=== PATIENT | female | born 1975 | race Caucasian/White ===

== ENCOUNTER → 2016-07-07 | Outpatient (CLI) | payer BC ==
[~2016-07-07] MED LIST: BCPILLS PO
--- NOTE | 2016-07-08 12:49 | MAMMOGRAPHY REPORT ---
BILATERAL FIRST EVER DIGITAL SCREENING MAMMOGRAM TOMOSYNTHESIS WITH CAD: 07/07/2016 CLINICAL HISTORY: Routine screening examination. TECHNIQUE: Breast tomosynthesis in addition to standard 2D mammography was performed. Current study was also evaluated with a Computer Aided Detection (CAD) system. COMPARISON: No prior exams were available for comparison. BREAST COMPOSITION: The tissue of both breasts is heterogeneously dense, which may obscure small ma sses. FINDINGS: There is a small grouping of microcalcifications in the approximate 9:00 middle one third of the left breast, for which additional spot magnification views are recommended. There is an asy mmetry in the superior middle one third of the right breast, near the fatglandular interface with p ossible associated architectural distortion. Although this does not definitely persist on the corre sponding tomosynthesis images, additional spot compression tomosynthesis views and possibly ultrasou nd are recommended given that no prior mammograms are available to assess stability. No other suspicious mass, architectural distortion or cluster of microcalcifications is seen bilater ally. IMPRESSION: ACR BI-RADS CATEGORY 0: INCOMPLETE EVALUATION: NEED ADDITIONAL IMAGING EVALUATION The small grouping of microcalcifications in the 9:00 left breast, and right superior asymmetry need additional imaging evaluation. The patient will be called to schedule an appointment. Approximately 10% of breast cancers are not detected with mammography. A negative mammographic repor t should not delay biopsy if a clinically suggestive mass is present. Laury Fontanez M.D. ay/:07/07/2016 17:15:10 Back End Architect: Nydia ADAMS)(Neha), [facility] letter sent: Addl Imaging 0 BI-RADS Code: ACR BI-RADS Category 0: Incomplete Evaluation: Need Additional Imaging Evaluation
== END | disposition home or self-care (01) ==
LOC: C.MAMM 16:38
PROVIDERS: ATTEND Obstetrics & Gynecology
DX: Z12.31 Encounter for screening mammogram for malignant neoplasm of breast (principal); R92.0 Mammographic microcalcification found on diagnostic imaging of breast

== ENCOUNTER → 2016-07-15 | Outpatient (CLI) | payer BC ==
--- NOTE | 2016-07-15 15:41 | MAMMOGRAPHY REPORT ---
BILATERAL DIGITAL DIAGNOSTIC MAMMOGRAM TOMOSYNTHESIS WITH CAD: 07/15/2016 CLINICAL HISTORY: Callback from screening mammogram for right breast asymmetry and left breast calci fications. TECHNIQUE: Breast tomosynthesis in addition to standard 2D mammography was performed. Current study was also evaluated with a Computer Aided Detection (CAD) system. Spot magnification left CC and ML views and spot compression right MLO 2-D and tomosynthesis images were obtained. COMPARISON: Comparison is made to exam dated: 07/07/2016 mammogram - [facility]. BREAST COMPOSITION: The tissue of both breasts is heterogeneously dense, which may obscure small ma sses. FINDINGS: The previously described asymmetry seen within the right superior breast has the appearan ce of normal fibroglandular tissue on the tomosynthesis spot compression views. No suspicious mass or architectural distortion is seen in this region on the additional views. Spot magnification views of the left breast demonstrate a 6 mm group of round calcifications seen wi thin the left medial breast at approximately 9:00. A smaller 3 mm cluster of punctate calcification s is seen on the spot magnification ML view in the inferior posterior breast. A few other scattered benign-appearing calcifications are noted. The calcifications are probably benign. Recommend foll ow-up diagnostic mammograms in 6 months given no priors to document stability. IMPRESSION: ACR-BI-RADS CATEGORY 3: PROBABLY BENIGN 1. Two small clusters of benign-appearing calcifications in the left 9:00 and left inferior posterio r breast. The calcifications are probably benign; recommend follow-up diagnostic mammograms of the left breast in 6 months given no priors to document stability. 2. The right breast asymmetry is benign and compatible with normal fibroglandular tissue. The patient has been verbally notified of the results. Approximately 10% of breast cancers are not detected with mammography. A negative mammographic repor t should not delay biopsy if a clinically suggestive mass is present. Daniela Cottrell M.D. /:07/15/2016 14:36:41 Fitness Floor Attendant: Jessica Her, [facility] letter sent: Follow Up Recommended 3 BI-RADS Code: ACR-BI-RADS Category 3: Probably Benign
== END | disposition home or self-care (01) ==
LOC: C.MAMM 14:09
PROVIDERS: ATTEND Obstetrics & Gynecology
DX: R92.1 Mammographic calcification found on diagnostic imaging of breast (principal)

== ENCOUNTER → 2016-11-23 | Outpatient (CLI) | payer BC | END | disposition home or self-care (01) | LOC: C.PAPS 11:59 | PROVIDERS: ATTEND Physician Assistant | DX: Z01.419 Encounter for gynecological examination (general) (routine) without abnormal findings (principal) ==

== ENCOUNTER → 2017-01-19 | Outpatient (CLI) | payer BC ==
--- NOTE | 2017-01-19 13:17 | MAMMOGRAPHY REPORT ---
UNILATERAL LEFT DIGITAL DIAGNOSTIC MAMMOGRAM TOMOSYNTHESIS WITH CAD: 01/19/2017 CLINICAL HISTORY: Short interval follow-up of left breast calcifications. TECHNIQUE: Breast tomosynthesis in addition to standard 2D mammography was performed. Current study was also evaluated with a Computer Aided Detection (CAD) system. Left CC and MLO 2-D and tomosynthes is images and spot magnification left CC and ML views were obtained. COMPARISON: Comparison is made to exams dated: 07/15/2016 mammogram and 07/07/2016 mammogram - [facility]. BREAST COMPOSITION: The tissue of the left breast is heterogeneously dense, which may obscure small masses. FINDINGS: Spot magnification views of the left breast again demonstrate a small 6 mm group of round calcifications within the left medial breast at approximately 9:00. A smaller faint 3 mm cluster of punctate calcifications is also noted within the left inferior posterior breast on the ML view. The calcifications are stable on spot magnification views dated 07/15/2016. The calcifications are probab ly benign and another short interval follow-up is recommended to confirm stability. The remainder of the left breast is stable compared to prior exams, without suspicious masses, calcif ications, or areas of architectural distortion noted. Left superior breast asymmetry on the MLO view is stable and has the appearance of normal fibroglandular tissue on the tomosynthesis images. IMPRESSION: ACR-BI-RADS CATEGORY 3: PROBABLY BENIGN Two small clusters of benign-appearing calcifications in the left breast are stable compared to the exam and are probably benign. Recommend bilateral diagnostic tomosynthesis mammograms in 6 months, to reevaluate the left breast calcifications and for routine mammography of the right breast. The patient has been verbally notified of the results. Approximately 10% of breast cancers are not detected with mammography. A negative mammographic report should not delay biopsy if a clinically suggestive mass is present. Daniela Cottrell M.D. ah/:01/19/2017 10:03:29 Homeowner Association Manager: Nydia ADAMS)(Neha), [facility] letter sent: Follow Up Recommended 3 BI-RADS Code: ACR-BI-RADS Category 3: Probably Benign
== END ==
LOC: C.MAMM 09:28
PROVIDERS: ATTEND Internal Medicine
DX: Z09 Encounter for follow-up examination after completed treatment for conditions other than malignant neoplasm (principal)

== ENCOUNTER → 2017-07-25 | Outpatient (CLI) | payer BC ==
--- NOTE | 2017-07-26 07:42 | MAMMOGRAPHY REPORT ---
BILATERAL DIGITAL DIAGNOSTIC MAMMOGRAM TOMOSYNTHESIS WITH CAD: 07/25/2017 CLINICAL HISTORY: Follow-up of benign-appearing calcifications in the left breast. Also time of felecia al bilateral screening mammograms. TECHNIQUE: Bilateral breast tomosynthesis in addition to standard 2D mammography was performed. Spot magnification left CC and ML views were also obtained. Current study was also evaluated with a Comp uter Aided Detection (CAD) system. COMPARISON: Comparison is made to exams dated: 01/19/2017 mammogram, 07/15/2016 mammogram, and 07/08/19 17 mammogram - [facility]. BREAST COMPOSITION: The tissue of both breasts is heterogeneously dense, which may obscure small mas ses. FINDINGS: The glandular pattern is similar to prior mammograms. There are 1-2 round benign-appearing microcalcifications in the right breast. There are 2 stable clusters of round and punctate microcal cifications in the left breast at 9:00 and inferior posterior breast that have not significantly valle ged dating back to the spot magnification views obtained on 07/15/2016. Another loose grouping of pun ctate calcifications is identified in the superior anterior left breast. Although the calcifications most likely represent benign fibrocystic change, given that they were seen on a baseline exam longer stability is needed and repeat spot magnification views are recommended in 12 months. No obvious ne w mass, asymmetry, area of architectural distortion or new suspicious calcifications are identified b ilaterally. IMPRESSION: ACR-BI-RADS CATEGORY 3: PROBABLY BENIGN Stable bilateral mammograms including clusters of rounded punctate microcalcifications in the 9:00 an d inferior, posterior left breast. Another 12 month follow-up diagnostic mammogram including spot ma gnification views is recommended to ensure longer stability. That will also be at the time of annual bilateral screening exam. These results and recommendations were discussed with the patient at the time of the exam. Approximately 10% of breast cancers are not detected with mammography. A negative mammographic report should not delay biopsy if a clinically suggestive mass is present. Laury Fontanez M.D. ay/:07/25/2017 14:34:41 Surgical Scrub Technologist: Jessica Her, [facility] letter sent: Follow Up Recommended 3 BI-RADS Code: ACR-BI-RADS Category 3: Probably Benign
== END | disposition home or self-care (01) ==
LOC: C.MAMM 13:32
PROVIDERS: ATTEND Physician Assistant
DX: R92.0 Mammographic microcalcification found on diagnostic imaging of breast (principal)